=== PATIENT | female | born 1940 | race Caucasian/White ===

== ENCOUNTER 2017-04-07 20:16 | Inpatient (IN) | payer MEDICARE, OTHER ==
[~2017-04-07] VITALS: Ht 157.4 cm; Wt 70.3 kg
[2017-04-07] VITALS (15 sets, daily range): BP systolic 112–143; BP diastolic 53–68
--- NOTE | ~2017-04-07 | CON ---
[place], [place] REPORT OF CONSULTATION NAME: TRISTAN ALFRED I UNIT #: [id number] ROOM: 415 DOCTOR: WADE PRADHAN MD BIRTHDATE: [birth year] DOS: 04/08/2017 REASON FOR CONSULTATION: Chest pain. HISTORY OF PRESENT ILLNESS: The patient is a 76-year-old woman who has no previously documented history of coronary artery disease. She states that about 2 days ago, she had an episode of pain under her right ribs that radiated to the center of her chest. It improved; however, yesterday after a shopping trip she had severe pain in the center of her chest that radiated into her back. It lasted a few hours before it finally resolved. She was given nitrates and morphine and these did seem to help the pain. Electrocardiograms were obtained and showed nonspecific T-wave flattening, but no acute ST elevation or depression. Serial troponin levels have been normal. She is now comfortable. While the pain was occurring, she did have some diaphoresis and dyspnea. She denied lightheadedness, nausea or vomiting. There was nothing that she could do to make the pain better or worse. PAST MEDICAL HISTORY: Includes the followin. Essential hypertension. 2. Hyperlipidemia. 3. Diverticulitis. 4. Chronic renal insufficiency with BUN 13 and creatinine 0.93 on the current admission. 5. No history of myocardial infarction, stroke or diabetes. The patient is a lifetime nonsmoker. 6. History of appendectomy. MEDICATIONS: Prior to admission: Ascorbic acid 60 mg daily, aspirin 81 mg daily, iron sulfate 325 mg daily, irbesartan 150 mg daily, omeprazole 20 mg daily, pravastatin 40 mg daily and vitamin E 100 mg daily. ALLERGIES: The patient lists allergies to CODEINE and LOSARTAN. REVIEW OF SYSTEMS: The patient denies diplopia or loss of vision. She denies fevers, chills, sweats or recent weight change. She denies any focal weakness. She denies lightheadedness or syncope. She denies nausea or vomiting. She denies hemoptysis or hematemesis. She denies any change in bowel or bladder habits and denies blood in urine or stool. She denies any skin rashes. She denies peripheral edema, orthopnea or PND. She denies heat or cold intolerance and denies any hot or swollen joints. She denies any polydipsia or polyuria and the review of systems is negative except as noted above. FAMILY HISTORY: The patient's father had heart disease in his 80s. Her mother had colon cancer. SOCIAL HISTORY: The patient has never smoked and does not consume significant amounts of alcohol. PHYSICAL EXAMINATION: GENERAL: The patient is a well-nourished white female who is awake, alert and [place], [place] REPORT OF CONSULTATION NAME: TRISTAN ALFRED I UNIT #: [id number] ROOM: [facility] DOCTOR: WADE PRADHAN MD BIRTHDATE: [birth year] oriented. VITAL SIGNS: Pulse is 78 and regular, blood pressure 147/62. She is afebrile. She weighs 70.3 kg and has a body mass index of 28.4. HEENT: Normocephalic, atraumatic. Extraocular muscles are intact. Sclerae are clear. Pupils are equal, round and reactive to light. Oral mucosa is moist. Tongue is midline. NECK: Supple. She has no jugular distention. Carotids are full. I heard no bruits. She had no neck or supraclavicular masses. No thyromegaly. RESPIRATORY: Respirations are unlabored. Her chest is clear to auscultation and percussion. She has no presacral edema or chest wall tenderness. CARDIOVASCULAR: Her heart has a regular rhythm. She has a soft S4 gallop, but no S3 or murmur. The PMI is not displaced. There is no precordial heave, lift or thrill. ABDOMEN: She does have tenderness in her epigastrium and in her right upper quadrant and she does have a positive Cook's sign. There is no rebound or mass present. Bowel sounds are normally active. EXTREMITIES: Showed no clubbing, cyanosis or edema. She does have varicose veins and spider veins on her legs bilaterally. Pedal pulses are palpable in the feet. There is no Homans sign or palpable cord. No obvious skin rashes are present. LABORATORY DATA: Hemoglobin is 12.0 and hematocrit 35.7. There are 7700 white cells and 269,000 platelets. Sodium is 140, potassium 3.9, BUN 13, creatinine 0.93. Troponin levels were normal x 3. IMPRESSION: 1. Atypical chest pain. Thus far the patient shows no signs of an acute coronary syndrome. 2. Essential hypertension. 3. Hyperlipidemia. 4. Mild chronic renal insufficiency. PLAN: The patient's physical findings suggest that her pains may be of GI origin, but I think that she has risk factors for coronary disease and so this must be assessed before a GI evaluation takes place. We will arrange for her to undergo a pharmacologic myocardial perfusion study in the next 24 hours. If this looks good, then a GI workup would be the next step. Otherwise, we will manage her stress test results appropriately. I thank the hospitalist physicians for asking our advice regarding the patient's assessment and care. [place], [place] REPORT OF CONSULTATION NAME: TRISTAN ALFRED I UNIT #: [id number] ROOM: [facility] DOCTOR: WADE PRADHAN MD BIRTHDATE: [birth year] WADE PRADHAN MD CM:CONSTR:REPORT OF CONSULTATION 1728 04/08/172009 interface
--- NOTE | ~2017-04-07 | PR ---
[place], [place] PROGRESS NOTE NAME: TRISTAN ALFRED I UNIT #: [id number] ROOM: 415 DOCTOR: WADE PRADHAN MD BIRTHDATE: [birth year] DOS: 04/10/2017 SUBJECTIVE: The patient was seen at her bedside today, 04/10/2017, with her daughter in attendance. She is a 76-year-old woman who presented to the hospital with atypical chest discomfort. Her evaluation does show evidence for gallbladder distention, consistent with acute cholecystitis. Cardiac workup does show evidence for small inferolateral wall myocardial infarction with minimal bambi-infarction ischemia. Although, the stress test is abnormal, it is low risk and should be managed medically. PHYSICAL EXAMINATION: VITAL SIGNS: Today her pulse is 86 and regular, blood is 100/60. She is afebrile. NECK: Supple. She has no jugular distention. Carotids are full. LUNGS: Respirations are unlabored. HEART: Has regular rhythm with an S4 gallop. EXTREMITIES: Showed no edema. IMPRESSION: 1. Atypical chest pain. Myocardial infarction has been ruled out. 2. Abnormal stress test, demonstrating a small previous inferolateral wall myocardial infarction with a small area of bambi-infarction ischemia. Left ventricular systolic function is normal. 3. Essential hypertension. 4. Hyperlipidemia. 5. Probable acute cholecystitis. PLAN: No other cardiac workup is pending at this time. The patient should be treated with aspirin, statins and beta blockers. I would like to see her back in the office in 6-8 weeks, but will be happy to see her sooner if there is change in her status. In the interim, she certainly is cleared to undergo further GI evaluation and cholecystectomy if that is indicated. I thank the hospitalist physicians for asking our advice regarding her care. [place], [place] PROGRESS NOTE NAME: TRISTAN ALFRED I UNIT #: [id number] ROOM: 415 DOCTOR: WADE PRADHAN MD BIRTHDATE: [birth year] WADE PRADHAN MD CM:PNTRANS [id number] WADE PRADHAN MD 04/10/17 1012 interface
--- NOTE | ~2017-04-07 | PR ---
[place], [place] PROGRESS NOTE NAME: TRISTAN ALFRED I UNIT #: [id number] ROOM: 415 DOCTOR: WADE PRADHAN MD BIRTHDATE: [birth year] DOS: 04/09/2017 CARDIOLOGY PROGRESS NOTE SUBJECTIVE: The patient was seen in the Cardiology Department just prior to her stress test. She is a 76-year-old woman without any previously documented history of coronary artery disease. She presented with pain under her right ribs that radiated to the center of her chest. There was a concern that she had some EKG changes and therefore Cardiology was consulted. She states that she still has some right upper quadrant pain and is being evaluated for possible gallbladder disease concurrently with her cardiac assessment. PHYSICAL EXAMINATION: VITAL SIGNS: Today her pulse is 76 and regular, blood pressure 148/78. She is afebrile. She weighs 70.3 kilograms. NECK: Supple. She has no jugular distention. Carotids are full. She has no bruits. LUNGS: Respirations are unlabored. HEART: Has regular rhythm with an S4 gallop. ABDOMEN: Soft and normally active. EXTREMITIES: Showed no edema. LABORATORY DATA: White count is 7700, hemoglobin is 12.0. Sodium is 141, potassium 4.2, BUN 14, creatinine 0.89. Serial troponin levels have been normal. IMPRESSION: 1. Atypical chest pain, myocardial infarction has been ruled out. 2. Essential hypertension. 3. Hyperlipidemia. PLAN: We will proceed with a pharmacologic stress test today. Further recommendations will depend upon the results of her stress test. [place], [place] PROGRESS NOTE NAME: CATARINO ALFREDE Morgan UNIT #: [id number] ROOM: 415 DOCTOR: WADE PRADHAN MD BIRTHDATE: [birth year] WADE PRADHAN MD CM:PNTRANS [id number] WADE PRADHAN MD 04/09/172215 interface
[~2017-04-07 20:16] MED LIST: ASPIRIN81 M1 PO; AVAPRO150 M1 PO; FLAGYL500 MG PO; IRON325 M1 PO; OMEPRAZOLE D/R20 MG PO; PRAVACHOL40 MG PO; VITAMIN C60 MG PO; VITAMIN E100 UNI2 PO
--- NOTE | 2017-04-07 20:16 | NUR ---
FAMILY IN LOBBY. DAUGHTER NOTIFIED THAT ONCE PATIENT IS SETTLED INTO ROOM AND PRELIMINARY TESTS DONE THAT SHE COULD COME BACK.
[2017-04-07 20:37] LABS: BASO # 0.1 10*3/uL (0.0-0.1); BASO % 0.9 % (0.0-1.0); EOS # 0.2 10*3/uL (0.0-0.4); HEMATOCRIT 36.5 % (37.0-47.0); HEMOGLOBIN 12.3 g/dl (12.0-16.0); LYMPH # 2.4 10*3/uL (1.3-4.4); LYMPH % 22.6 % (27.0-41.0); MEAN CELL VOLUME 86.5 fl (81.0-99.0); MEAN CORPUSCULAR HGB 29.1 pg (27.0-31.0); MEAN CORPUSCULAR HGB CONC 33.7 g/dl (33.0-37.0); MONO # 0.9 10*3/uL (0.1-1.0); MONO % 8.6 % (3.0-9.0); NEUT # 6.8 10*3/uL (2.3-7.9); NEUT % 65.2 % (47.0-73.0); PLATELET COUNT AUTOMATED 301 10*3/uL (130-400); RED BLOOD COUNT 4.22 10*6/uL (4.10-5.10); RED CELL DISTRI WIDTH 13.7 % (0-14.5); WHITE BLOOD COUNT 10.4 10*3/uL (4.8-10.8)
[2017-04-07 20:48] LABS: ACT PARTIAL THROMBO TIME 22.9 SECONDS (20.8-31.5)
[2017-04-07 20:55] LABS: ALBUMIN 3.5 gm/dl (3.1-4.5); ALKALINE PHOSPHATASE 74 U/L (45-117); BUN 18 mg/dl (7-24); CHLORIDE 102 mmol/L (98-107); CREATININE 1.14 mg/dL (0.55-1.02); MAGNESIUM 2.2 mg/dL (1.5-2.1); POTASSIUM 3.9 mmol/L (3.5-5.1); SGOT/AST 10 IU/L (3-35); SGPT/ALT 14 U/L (12-78); SODIUM 137 mmol/L (136-145); TOTAL PROTEIN 6.8 gm/dL (6.4-8.2)
[2017-04-07 20:56] LABS: TROPONIN I < 0.015 ng/ml (<0.045)
--- NOTE | 2017-04-07 22:20 | NUR ---
A 76 YEAR OLD FEMALE admitted to [facility], under the services of JOHN Sweet DO with a diagnosis of CHEST PAIN WITH HIGH RISK FOR CARDIAC ETIOLOGY. Chief complaint is MISTERNAL CHEST PAIN RADIATING INTO BACK. Patient arrived via stretcher from ER. Monitor applied. Initial assessment completed. Vital signs taken and recorded. JOHN SWEET DO notified of admission to the unit. Orders received. See assessment for past medical history, medications and allergies. Patient and/or family oriented to unit. [facility] visitation policy reviewed. Clothing/patient valuable form completed. CLARISA MEDRANO
--- NOTE | 2017-04-07 23:38 | NUR ---
2300 NITRO GTT DC'ED PER ORDER. NSS STARTED PER ORDER 2315 RESTORIL PO GIVEN FOR SLEEP. WILL MONITOR.
[2017-04-08] VITALS: BP 121/60
--- NOTE | 2017-04-08 00:19 | NUR ---
RESTING IN BED WITH EYES CLOSED. APPEARS TO BE SLEEPING. EARLIER RESTORIL EFFECTIVE. IV FLUIDS CONT. PULSE OX 97% ON 2L. CALL LIGHT IN REACH. NO C/O'S CHEST PAIN OR DISCOMFORT VOICED AT PRESENT.
--- NOTE | 2017-04-08 00:20 | NUR ---
MEDICATION LIST VERIFIED WITH PT MED LIST FROM HOME.
[2017-04-08 04:00] VITALS: BP 127/46
--- NOTE | 2017-04-08 04:19 | NUR ---
REMAINS SLEEPING WITHOUT DISTRESS.
[2017-04-08 04:44] LABS: BASO # 0.1 10*3/uL (0.0-0.1); BASO % 0.8 % (0.0-1.0); EOS # 0.2 10*3/uL (0.0-0.4); EOS % 2.5 % (1.0-4.0); HEMATOCRIT 35.7 % (37.0-47.0); LYMPH # 2.1 10*3/uL (1.3-4.4); LYMPH % 27.1 % (27.0-41.0); MEAN CELL VOLUME 86.7 fl (81.0-99.0); MEAN CORPUSCULAR HGB 29.1 pg (27.0-31.0); MEAN CORPUSCULAR HGB CONC 33.6 g/dl (33.0-37.0); MEAN PLATELET VOLUME 8.7 fl (9.6-12.3); MONO # 0.7 10*3/uL (0.1-1.0); MONO % 9.2 % (3.0-9.0); NEUT # 4.6 10*3/uL (2.3-7.9); NEUT % 59.9 % (47.0-73.0); PLATELET COUNT AUTOMATED 269 10*3/uL (130-400); RED BLOOD COUNT 4.12 10*6/uL (4.10-5.10); RED CELL DISTRI WIDTH 13.7 % (0-14.5); WHITE BLOOD COUNT 7.7 10*3/uL (4.8-10.8)
[2017-04-08 04:56] LABS: ACT PARTIAL THROMBO TIME 23.5 SECONDS (20.8-31.5)
[2017-04-08 05:04] LABS: ALBUMIN 3.1 gm/dl (3.1-4.5); ALKALINE PHOSPHATASE 66 U/L (45-117); BUN 13 mg/dl (7-24); CHLORIDE 105 mmol/L (98-107); CHOLESTEROL 120 mg/dL (<200); CREATININE 0.93 mg/dL (0.55-1.02); HDL CHOLESTEROL 43 mg/dl (40-60); LDL CHOLESTEROL 60 mg/dL (9-159); MAGNESIUM 2.2 mg/dL (1.5-2.1); PHOSPHOROUS 3.7 mg/dL (2.5-4.9); POTASSIUM 3.9 mmol/L (3.5-5.1); SGOT/AST 6 IU/L (3-35); SGPT/ALT 13 U/L (12-78); SODIUM 140 mmol/L (136-145); TOTAL PROTEIN 6.3 gm/dL (6.4-8.2); TRIGLYCERIDES 84 mg/dl (<150); VLDL CHOLESTEROL 17 mg/dL (6-40)
[2017-04-08 05:10] LABS: FREE T4 0.98 ng/dl (0.76-1.46)
--- NOTE | 2017-04-08 06:09 | NUR ---
SLEPT WELL THIS SHIFT. REMAINS WITHOUT C/O'S CHEST PAIN. IV FLUIDS CONT. CONDITION GUARDED.
[2017-04-08 07:57] VITALS: BP 143/71
[2017-04-08 08:33] LABS: VITAMIN D, 25-HYDROXY 23.8 ng/mL (30-100)
[2017-04-08 12:00] VITALS: BP 126/53
--- NOTE | 2017-04-08 13:28 | NUR ---
TRANSFERRED TO 415 FAMILY UPDATED
--- NOTE | 2017-04-08 13:43 | NUR ---
DR CLEMENTE SERVICE NOTIFIED OF CONSULT
--- NOTE | 2017-04-08 13:45 | NUR ---
DR GARZA CALLED IN AND WAS UPDATED ON CONSULT
--- NOTE | 2017-04-08 14:29 | NUR ---
RESTING COMFORTABLY, DENIES C/O CHEST PAIN OR S.O.B. CALL LIGHT SYSTEM REINFORCED FOR ASSISTANCE.
[2017-04-08 16:00] VITALS: BP 147/62
--- NOTE | 2017-04-08 17:20 | NUR ---
DR PRADHAN IN TO SEE PT.
--- NOTE | 2017-04-08 18:16 | NUR ---
NO OBVIOUS CHANGES NOTED THIS SHIFT.
[2017-04-08 20:00] VITALS: BP 135/59
--- NOTE | 2017-04-08 20:10 | NUR ---
PT RESTING QUIETLY IN BED. SHORT TERM MEMORY LOSS NOTED. PT ASKING ABOUT SLEEPING PILL SEVERAL TIMES IN 10 MINUTES. EXPLAINED EACH TIME THAT IT WAS TOO EARLY AND I WOULD BRING ONE IN AROUND 9PM. URINE NOTED ON BATHROOM FLOOR. EMPTY HAT LYING ON FLOOR. PT REMINDED TO URINATE IN THE HAT SO STAFF CAN MONITOR HER OUTPUT. PT REPLIES, "OK". NON SKID SLIPPERS PLACED ON PT. CALL LIGHT IN REACH.
--- NOTE | 2017-04-08 21:21 | NUR ---
PT MEDICATED WITH PRN RESTORIL TO AID IN SLEEP PER PT REQUEST. BLIND CLOSED, TV AND LIGHTS TURNED OFF.
--- NOTE | 2017-04-08 22:19 | NUR ---
24 HR chart check completed.
[2017-04-09] VITALS: BP 128/51
--- NOTE | 2017-04-09 05:42 | NUR ---
PT FOUND STANDING BESIDE BED. PT HAD URINATED ON THE FLOOR. PT TAKEN TO BATHROOM AND INCONTINENCE CARE GIVEN. PT APOLOGETIC. BED ALARM TURNED ON TO PROMOTE PT SAFETY. NON SKID SOCKS PLACED ON PT WELL. CALL LIGHT IN REACH.
[2017-04-09 06:09] LABS: BUN 14 mg/dl (7-24); CHLORIDE 106 mmol/L (98-107); CREATININE 0.89 mg/dL (0.55-1.02); POTASSIUM 4.2 mmol/L (3.5-5.1); SODIUM 141 mmol/L (136-145)
[2017-04-09 08:00] VITALS: BP 148/78
--- NOTE | 2017-04-09 11:13 | NUR ---
Pt taken off floor via wheelchair for stress test.
--- NOTE | 2017-04-09 12:30 | NUR ---
INFORMED CONSENT SIGNED FOR LEXISCAN STRESS TEST WITH DR. PRADHAN. RESTING EKG NSR WITH RARE PVC'S. HR 75, BP 120/68. PULSE OX 99% AND LUNGS CLEAR. COMPLETED ONE MINUTE OF LEXISCAN PROTOCOL RECEIVING LEXISCAN 0.4MG OVER 10 SECONDS. NO ARRHYTHMIAS OR ST CHANGES NOTED. PT C/O NAUSEA AND SOB. LAST RECOVERY HR 96, BP 116/60. WAITING NUCLEAR SCANNING IN STABLE CONDITION.
--- NOTE | 2017-04-09 13:00 | NUR ---
Dr. Alvarado in and removed rhino rockets from bl nares.
[2017-04-09 16:00] VITALS: BP 143/75
[2017-04-09 20:00] VITALS: BP 128/77
--- NOTE | 2017-04-09 20:20 | NUR ---
PT RESTING QUIETLY IN BED. NO C/O VOICED.
[2017-04-10] VITALS: BP 132/76
--- NOTE | 2017-04-10 04:43 | NUR ---
24 HR chart check completed.
[2017-04-10 06:08] LABS: BASO # 0.1 10*3/uL (0.0-0.1); BASO % 0.9 % (0.0-1.0); EOS # 0.2 10*3/uL (0.0-0.4); EOS % 2.2 % (1.0-4.0); HEMATOCRIT 40.7 % (37.0-47.0); HEMOGLOBIN 13.8 g/dl (12.0-16.0); LYMPH % 23.4 % (27.0-41.0); MEAN CELL VOLUME 85.1 fl (81.0-99.0); MEAN CORPUSCULAR HGB 28.9 pg (27.0-31.0); MEAN CORPUSCULAR HGB CONC 33.9 g/dl (33.0-37.0); MEAN PLATELET VOLUME 9.2 fl (9.6-12.3); MONO # 0.7 10*3/uL (0.1-1.0); MONO % 8.2 % (3.0-9.0); NEUT # 5.5 10*3/uL (2.3-7.9); NEUT % 64.6 % (47.0-73.0); PLATELET COUNT AUTOMATED 364 10*3/uL (130-400); RED BLOOD COUNT 4.78 10*6/uL (4.10-5.10); RED CELL DISTRI WIDTH 13.5 % (0-14.5); WHITE BLOOD COUNT 8.6 10*3/uL (4.8-10.8)
[2017-04-10 06:36] LABS: BUN 12 mg/dl (7-24); CHLORIDE 102 mmol/L (98-107); CREATININE 0.89 mg/dL (0.55-1.02); POTASSIUM 3.9 mmol/L (3.5-5.1); SODIUM 138 mmol/L (136-145)
[2017-04-10 08:00] VITALS: BP 98/60
--- NOTE | 2017-04-10 08:15 | NUR ---
Claims Supervisor in to talk to patient. Patient states lives at HOME ALONE with . DAUGHTER LIVES NEXT DOOR. There are 10 steps in the home. Physician: DR MORRIS Pharmacy: [facility] Home health services: NONE Patient's level of ADLs: INDEPENDENT Patient has working utilities: YES DME: NONE Follow-up physician's appointment after d/c: WILL BE MADE PRIOR TO DC Does patient want to access PORTAL?: Discharge plan HOME. SHANNONTONYAFESTUS DAUGHTER PRESENT AND ALSO DENIED ANY DC NEEDS.
[2017-04-10 12:00] VITALS: BP 106/62
[2017-04-10] MEDS ORDERED: LOPRESSOR25 MG PO (13:05)
--- NOTE | 2017-04-10 13:22 | NUR ---
Discharge instructions reviewed with patient/family. Patient receptive and verbalizes understanding. Follow-up care arranged. Written instructions given to patient/family. DONALD DUMONT
== END 2017-04-10 13:22 | disposition home or self-care (01) | DRG 391 ==
LOC: ED 20:16 → EDHOLD 21:39 → 4E 21:39 → ICCU 21:44 → 4E 04-08 12:39
PROVIDERS: Emergency Medicine Emergency Medical Services; Hospitalist; Internal Medicine; Student in an Organized Health Care Education/Training Program; ADMIT Internal Medicine
PROC: 4A02XM4 Measurement of Cardiac Total Activity, External Approach (ICD-10-PCS; principal; 2017-04-09)
PROC: 3E073KZ Introduction of Other Diagnostic Substance into Coronary Artery, Percutaneous Approach (ICD-10-PCS; principal; 2017-04-09)
DX: K21.9 Gastro-esophageal reflux disease without esophagitis (principal); N17.0 Acute kidney failure with tubular necrosis; R07.89 Other chest pain; D72.810 Lymphocytopenia; E83.41 Hypermagnesemia; E02 Subclinical iodine-deficiency hypothyroidism; E78.5 Hyperlipidemia, unspecified; R94.39 Abnormal result of other cardiovascular function study; N18.3 Chronic kidney disease, stage 3 (moderate); Z60.2 Problems related to living alone; K82.8 Other specified diseases of gallbladder; R73.9 Hyperglycemia, unspecified; I12.9 Hypertensive chronic kidney disease with stage 1 through stage 4 chronic kidney disease, or unspecified chronic kidney disease; Z82.49 Family history of ischemic heart disease and other diseases of the circulatory system; Z79.82 Long term (current) use of aspirin; Z79.899 Other long term (current) drug therapy; Z88.6 Allergy status to analgesic agent; Z80.0 Family history of malignant neoplasm of digestive organs; Z90.49 Acquired absence of other specified parts of digestive tract; Z88.8 Allergy status to other drugs, medicaments and biological substances; I25.2 Old myocardial infarction

== ENCOUNTER → 2017-12-12 | Outpatient (CLI) | payer MEDICARE, OTHER ==
[~2017-12-12] MED LIST changes: +LOPRESSOR25 MG PO
== END | disposition home or self-care (01) ==
LOC: RAD 10:02
DX: I51.7 Cardiomegaly (principal); J45.909 Unspecified asthma, uncomplicated; Z87.891 Personal history of nicotine dependence

== ENCOUNTER → 2018-11-20 | Day surgery (SDC) | payer MEDICARE, OTHER ==
[~2018-11-20] VITALS: Wt 74.4 kg
[~2018-11-20] MED LIST changes: +ARICEPT10 M1 PO; +CELEXA20 MG PO; +MELATONIN10 M4 PO; +NAMENDA10 MG PO; +TRAZODONE100 MG PO
--- NOTE | ~2018-11-20 | O ---
[place], [place] OPERATIVE NOTE NAME: TRISTAN ALFRED I UNIT #: [id number] ROOM: DOCTOR: MEL ASHLEY MD BIRTHDATE: [birth year] DOS: 11/20/2018 PREOPERATIVE DIAGNOSIS: Cataract, right eye. POSTOPERATIVE DIAGNOSIS: Cataract, right eye. OPERATION: Extracapsular cataract extraction by phacoemulsification with posterior chamber intraocular lens implantation, right eye. ANESTHESIA: Monitored standby. OPERATIVE FINDINGS AND PROCEDURE: 2% Xylocaine topical anesthetic gel was applied to the eye in the preop area. The patient was taken to the operating room and prepped and draped in the standard fashion for sterile intraocular surgery. A time out procedure was performed verifying correct patient, correct site and corrects lens with Roger Ashley M.D. The operating microscope was swung into position and the lid speculum was inserted. Using a Nuzhat paracentesis blade, a paracentesis was made through clear cornea. Viscoelastic was used to fill the anterior chamber. Using a metal keratome a 2.4 mm self-sealing clear corneal cataract incision was made temporally at the limbus. Using a pre-bent 25 gauge cystotome needle, a standard continuous curvilinear capsulorrhexis was performed. The anterior capsule was removed with forceps. The lens nucleus was hydrodissected and phacoemulsified in the posterior chamber. Cortical material was removed with the irrigation aspiration hand piece and the posterior capsule was then polished with a curet under irrigation. The posterior chamber and capsular bag were filled with viscoelastic. A posterior chamber intraocular lens manufactured by: [employer], Model #[id number], and 19.0 diopters in strength were then inserted into the posterior chamber and within the capsular bag using the lens cartridge and injector system. Viscoelastic was removed using the irrigation aspiration handpiece. The anterior chamber was filled with balanced salt solution through the paracentesis. Both the paracentesis site and cataract incisions were hydrated with BSS and verified to be water-tight and self-sealing. Cefuroxime 1 mg/0.1 mL was injected into the anterior chamber through the paracentesis site. The incision checked to be water-tight using a Weck-Yvonne sponge. The integrity of the cataract wound and ocular tension were checked. Lid speculum and drapes were removed. The patient was transferred from the operating room to the recovery room in satisfactory condition. [place], [place] OPERATIVE NOTE NAME: TRISTAN ALFRED I UNIT #: [id number] ROOM: DOCTOR: MEL ASHLEY MD BIRTHDATE: [birth year] MEL ASHLEY MD CM:OPRECORD:OPERATIVE NOTE 1213 1227 MEL ASHLEY MD 11/20/18 1228 interface
[2018-11-20 11:29] VITALS: BP 130/50
[2018-11-20 12:13] VITALS: BP 117/61
[2018-11-20 12:30] VITALS: BP 109/44
[2018-11-20 12:43] VITALS: BP 119/47
== END | disposition home or self-care (01) ==
LOC: SDC 11-19 10:15
DX: H25.811 Combined forms of age-related cataract, right eye (principal); I10 Essential (primary) hypertension; J45.909 Unspecified asthma, uncomplicated; F32.9 Major depressive disorder, single episode, unspecified; F41.9 Anxiety disorder, unspecified; Z98.890 Other specified postprocedural states; Z79.899 Other long term (current) drug therapy

== ENCOUNTER → 2019-01-22 | Day surgery (SDC) | payer MEDICARE, OTHER ==
[~2019-01-22] VITALS: Ht 157.4 cm; Wt 76.7 kg
--- NOTE | ~2019-01-22 | O ---
[place], [place] OPERATIVE NOTE NAME: TRISTAN ALFRED I UNIT #: [id number] ROOM: DOCTOR: MEL ASHLEY MD BIRTHDATE: [birth year] DOS: 01/22/2019 PREOPERATIVE DIAGNOSIS: Cataract, left eye. POSTOPERATIVE DIAGNOSIS: Cataract, left eye. OPERATION: Extracapsular cataract extraction by phacoemulsification with posterior chamber intraocular lens implantation, left eye. ANESTHESIA: Monitored standby. OPERATIVE FINDINGS AND PROCEDURE: 2% Xylocaine topical anesthetic gel was applied to the eye in the preop area. The patient was taken to the operating room and prepped and draped in the standard fashion for sterile intraocular surgery. A time out procedure was performed verifying correct patient, correct site and corrects lens with Roger Ashley M.D. The operating microscope was swung into position and the lid speculum was inserted. Using a Nuzhat paracentesis blade, a paracentesis was made through clear cornea. A preservative-free mixture of lidocaine 4% and preservative-free epinephrine 1:1000 mixed in balanced salt solution was injected into the anterior chamber. Viscoelastic was used to fill the anterior chamber. Using a metal keratome a 2.4 mm self-sealing clear corneal cataract incision was made temporally at the limbus. Using a pre-bent 25 gauge cystotome needle, a standard continuous curvilinear capsulorrhexis was performed. The anterior capsule was removed with forceps. The lens nucleus was hydrodissected and phacoemulsified in the posterior chamber. Cortical material was removed with the irrigation aspiration hand piece and the posterior capsule was then polished with a curet under irrigation. The posterior chamber and capsular bag were filled with viscoelastic. A posterior chamber intraocular lens manufactured by: [employer], model #[id number], 19.0 diopters in strength were then inserted into the posterior chamber and within the capsular bag using the lens cartridge and injector system. Viscoelastic was removed using the irrigation aspiration handpiece. The anterior chamber was filled with balanced salt solution through the paracentesis. Both the paracentesis site and cataract incisions were hydrated with BSS and verified to be water-tight and self-sealing. Cefuroxime 1 mg/0.1 mL was injected into the anterior chamber through the paracentesis site. The incision checked to be water-tight using a Weck-Yvonne sponge. The integrity of the cataract wound and ocular tension were checked. Lid speculum and drapes were removed. [place], [place] OPERATIVE NOTE NAME: TRISTAN ALFRED I UNIT #: [id number] ROOM: DOCTOR: MEL ASHLEY MD BIRTHDATE: [birth year] MEL ASHLEY MD CM:OPRECORD:OPERATIVE NOTE 1419 1507 MEL ASHLEY MD 01/22/19 1507 interface
[2019-01-22 12:05] VITALS: BP 123/55
[2019-01-22 13:41] VITALS: BP 130/72
[2019-01-22 13:55] VITALS: BP 129/62
[2019-01-22 14:10] VITALS: BP 136/84
== END | disposition home or self-care (01) ==
LOC: SDC 01-16 11:00
DX: H25.812 Combined forms of age-related cataract, left eye (principal); I10 Essential (primary) hypertension; J45.909 Unspecified asthma, uncomplicated; K21.9 Gastro-esophageal reflux disease without esophagitis; F41.9 Anxiety disorder, unspecified; F32.9 Major depressive disorder, single episode, unspecified; Z90.710 Acquired absence of both cervix and uterus; Z98.890 Other specified postprocedural states; Z88.5 Allergy status to narcotic agent; Z88.8 Allergy status to other drugs, medicaments and biological substances; Z79.899 Other long term (current) drug therapy; Z80.9 Family history of malignant neoplasm, unspecified

== ENCOUNTER 2021-07-07 22:41 | Emergency (ER) | payer MEDICARE, OTHER ==
[~2021-07-07] VITALS: Ht 152.4 cm; Wt 71.7 kg
[2021-07-07] MEDS ORDERED: BENZONATATE100 M1 PO (23:03)
[2021-07-07] MEDS ORDERED: CENTRUM SILVER1 EACH PO (23:03)
[2021-07-07] MEDS ORDERED: HYDROXYZINE HCL25 MG PO ×2 (23:04→23:05)
[2021-07-07] MEDS ORDERED: SERTRALINE HYDR50 MG PO (23:05)
[2021-07-07] MEDS ORDERED: TYLENOL325 M3 PO (23:05)
== END 2021-07-07 23:50 | disposition home or self-care (01) ==
LOC: ED 22:41
DX: I82.401 Acute embolism and thrombosis of unspecified deep veins of right lower extremity (principal); Z88.6 Allergy status to analgesic agent; Z88.8 Allergy status to other drugs, medicaments and biological substances; Z79.899 Other long term (current) drug therapy; Z90.49 Acquired absence of other specified parts of digestive tract

== ENCOUNTER 2022-03-18 10:17 | Emergency (ER) | payer MEDICARE, OTHER ==
[~2022-03-18] VITALS: Wt 71.7 kg
[~2022-03-18 10:17] MED LIST changes: +BENZONATATE100 M1 PO; +CENTRUM SILVER1 EACH PO; +HYDROXYZINE HCL25 MG PO; +SERTRALINE HYDR50 MG PO; +TYLENOL325 M3 PO
[2022-03-18 10:56] LABS: BASO # 0.1 10*3/uL (0.0-0.1); BASO % 0.7 % (0.0-1.0); EOS # 0.1 10*3/uL (0.0-0.4); EOS % 0.7 % (1.0-4.0); HEMATOCRIT 38.4 % (37.0-47.0); LYMPH # 1.2 10*3/uL (1.3-4.4); LYMPH % 10.4 % (27.0-41.0); MEAN CELL VOLUME 87.9 fl (81.0-99.0); MEAN CORPUSCULAR HGB 27.9 pg (27.0-31.0); MEAN CORPUSCULAR HGB CONC 31.8 g/dl (33.0-37.0); MEAN PLATELET VOLUME 9.3 fl (9.6-12.3); MONO # 1.4 10*3/uL (0.1-1.0); MONO % 11.9 % (3.0-9.0); NEUT # 8.6 10*3/uL (2.3-7.9); NEUT % 75.3 % (47.0-73.0); PLATELET COUNT AUTOMATED 327 10*3/uL (130-400); RED BLOOD COUNT 4.37 10*6/uL (4.10-5.10); RED CELL DISTRI WIDTH 16.4 % (0-14.5); WHITE BLOOD COUNT 11.5 10*3/uL (4.8-10.8)
[2022-03-18 11:12] LABS: CREATININE 1.09 mg/dL (0.55-1.02); POTASSIUM 3.9 mmol/L (3.5-5.1); TOTAL PROTEIN 7.7 gm/dL (6.4-8.2)
[2022-03-18 12:53] LABS: BILIRUBIN Negative (Negative); BLOOD Negative (Negative); COLOR Yellow (Yellow); GLUCOSE Negative (Negative); KETONE Negative (Negative); LEUKO ESTERASE 1+ (Negative); NITRITE Negative (Negative); PH 5.5 (4.5-8.0)
[2022-03-18 12:56] LABS: CLARITY Clear (Clear)
[2022-03-18 13:44] LABS: BACTERIA 3+
== END 2022-03-18 13:40 ==
LOC: ED 10:17
PROVIDERS: Emergency Medicine
DX: R05.9 Cough, unspecified (principal); I10 Essential (primary) hypertension; E78.5 Hyperlipidemia, unspecified; I25.2 Old myocardial infarction; Z88.8 Allergy status to other drugs, medicaments and biological substances; Z79.899 Other long term (current) drug therapy; Z90.49 Acquired absence of other specified parts of digestive tract; Z90.710 Acquired absence of both cervix and uterus